=== PATIENT | male | born 1975 | race Asian ===

== ENCOUNTER 2017-01-18 19:17 | Emergency (ER) | payer MEDICAID, OTHER ==
[~2017-01-18] VITALS: Ht 170.2 cm; Wt 80.0 kg
[2017-01-18 19:21] VITALS: Ht 170.2 cm; Wt 80.0 kg
[2017-01-18] MEDS ORDERED: morphine 4 MG/ML VIAL IV STA (22:52)
[2017-01-18] MEDS ORDERED: SOD CHLORIDE 0.9% 1,000 ML IV STA (22:52)
[2017-01-18] MEDS ORDERED: ONDANSETRON 4 MG INJ IV STA (22:52)
[2017-01-18 23:15] LABS: BASOPHIL # 0.1 10^3/ul (0.0-0.1); BASOPHILS % 0.8 % (0.0-2.0); EOSINOPHILS # 0.6 10^3/ul (0.0-0.5); EOSINOPHILS % 5.8 % (0.0-7.0); HEMATOCRIT 42.8 % (42.0-52.0); HEMOGLOBIN 14.3 g/dl (14.0-18.0); LYMPHOCYTES % 38.6 % (15.0-51.0); MEAN CORPUSCULAR HEMOGLOBIN 29.8 pg (29.0-33.0); MEAN CORPUSCULAR HGB CONC 33.4 g/dl (32.0-37.0); MEAN CORPUSCULAR VOLUME 89.2 fl (82.0-101.0); MONOCYTES % 9.3 % (0.0-11.0); NEUTROPHILS % 45.2 % (39.0-77.0); PLATELET COUNT 281 10^3/UL (140-415); RED CELL DISTRIBUTION WIDTH 12.3 % (11.5-14.5); WHITE BLOOD COUNT 10.4 10^3/ul (4.8-10.8)
[2017-01-18 23:19] LABS: ADD UMIC NO; UR ASCORBIC ACID NEGATIVE (NEGATIVE); UR BILIRUBIN (Dip) NEGATIVE (NEGATIVE); UR BLOOD (Dip) NEGATIVE (NEGATIVE); UR CLARITY CLEAR (CLEAR); UR COLOR YELLOW (YELLOW); UR GLUCOSE (Dip) NEGATIVE (NEGATIVE); UR KETONES (Dip) NEGATIVE (NEGATIVE); UR LEUKOCYTE ESTERASE (Dip) NEGATIVE Leu/ul (NEGATIVE); UR NITRITE (Dip) NEGATIVE (NEGATIVE); UR SPECIFIC GRAVITY (Dip) 1.023 (1.003-1.030); UR TOTAL PROTEIN (Dip) NEGATIVE (NEGATIVE); UR UROBILINOGEN (Dip) 1+ mg/dL (NEGATIVE)
[2017-01-18 23:32] LABS: ALANINE AMINOTRANSFERASE 95 IU/L (13-69); ALBUMIN 4.2 g/dl (3.3-4.9); ALBUMIN/GLOBULIN RATIO 1.13; ALKALINE PHOSPHATASE 121 IU/L (42-121); ANION GAP 14 (8-16); ASPARTATE AMINO TRANSFERASE 56 IU/L (15-46); BILIRUBIN,INDIRECT 0.1 mg/dl (0-1.1); BILIRUBIN,TOTAL 0.1 mg/dl (0.2-1.3); BLOOD UREA NITROGEN 21 mg/dl (7-20); CALCIUM 9.6 mg/dl (8.4-10.2); CARBON DIOXIDE 30 mmol/L (21-31); CHLORIDE 103 mmol/L (97-110); CREATININE 0.83 mg/dl (0.61-1.24); GLUCOSE 86 mg/dl (70-220); POTASSIUM 3.8 mmol/L (3.5-5.1); SODIUM 143 mmol/L (135-144); TOTAL PROTEIN 7.9 g/dl (6.1-8.1)
[2017-01-18 23:48] LABS: TROPONIN-I < 0.012 ng/ml (0.00-0.12)
[2017-01-19] MEDS ORDERED: SOD CHLORIDE 0.9% 100 ML ONE (00:17)
[2017-01-19] MEDS ORDERED: IOHEXOL 300MG/ML 150 ML BTL ONE (00:17)
--- NOTE | 2017-01-19 01:05 | RADRPT ---
PROCEDURE: CT ABDOMEN AND PELVIS WITH CONTRAST: CLINICAL INDICATION: 41 years of age, male, abdominal pain. COMPARISON: None available. TECHNIQUE: CT of the abdomen and pelvis was performed following administration of 100 mL IV Omnipaq ue-300. Oral contrast was not administered prior to the examination. Coronal and sagittal reformatted images were obtained from the axial source images. Images were revi ewed on a high-resolution PACS workstation. Dose information: Based on a 32 cm phantom, the estimated radiation dose (CTDIvol mGy for each serie s in this exam is 11.9. The estimated cumulative dose (DLP mGy-cm) is 783. One or more of the following dose reduction techniques were used: - Automated exposure control. - Adjustment of the mA and/or kV according to patient size. - Use of iterative reconstruction technique. FINDINGS: LUNG BASES: Bilateral dependent atelectasis. ABDOMEN/PELVIS: Liver: Liver is imaged in the early portal venous phase with nonopacification of the hepatic veins. No focal lesions. Portal veins, splenic vein and SMV are patent. Gallbladder: Normal. Bile ducts: No intrahepatic or extrahepatic biliary duct dilatation. Spleen: Normal. Pancreas: Normal. Adrenal glands: Normal. Kidneys and ureters: Normal. Negative for urinary calculi or hydronephrosis. Aorta and IVC: Minimal atherosclerosis aorta. Aorta is normal caliber. Lymph nodes: Normal. Gastrointestinal tract: There is a 2.7 cm inflamed epiploic appendage arising from the anterior wall of the mid ascending colon in the right mid abdomen in keeping with epiploic appendagitis (3/103). The underlying colon appears normal. There are prominent loops of small bowel in the left upper quad rant without a transition point in keeping with a localized ileus. Bowel loops are otherwise decompr essed. Appendix: Normal Bladder: Normal. Pelvic Organs: Prostate gland and seminal vesicles are unremarkable. Peritoneal cavity: No free fluid or free intraperitoneal air. Abdominal wall: Normal. BONES: Musculoskeletal: No suspicious bone lesions. IMPRESSION: Acute epiploic appendagitis involving an appendage arising from the mid ascending colon in the right mid abdomen. RPTAT: HCTS Claudiay Sadro, Physician Date Time Electronically viewed and signed by Emilie Barker, Physician on 01/19/2017 01:05 CS/
[2017-01-19] MEDS ORDERED: morphine 4 MG/ML VIAL IV STA (01:18)
[2017-01-19] MEDS ORDERED: ONDANSETRON 4 MG INJ IV STA (01:18)
[2017-01-19] MEDS ORDERED: NAPR-260 PO (01:28)
[2017-01-19] MEDS ORDERED: HYDR-906 PO (01:28)
[2017-01-19] MEDS ORDERED: AMOX1TAB10 PO (01:28)
--- NOTE | 2017-02-02 16:48 | ERD ---
ER Documentation Chief Complaint Date/Time DATE: 02/02/17 TIME: 16:37 Chief Complaint RUQ pain for 2 days denies n/v/d and constipation HPI 41-year-old male presents to the emergency department for complaints of abdominal pain which has been intermittent and gradually worsening over the past week. He states that the pain is currently a sharp right-sided out of 10, mid abdominal pain which is worse after eating. Denies any fever but notes possible chills since last night. He is attempted to treat his symptoms with Motrin and Tylenol with only mild relief. Bowel movement was today and normal for him. He denies any vomiting, diarrhea, headache. Denies any prior abdominal surgeries. ROS All systems reviewed and are negative except as per history of present illness. Medications Home Meds Active Scripts Hydrocodone/Acetaminophen ([place] 5-325 Tablet) 1 Each Tablet, 1 TAB PO Q6H Y for PAIN, #12 TAB Prov:ABEL ASIF PA-C 01/19/17 Naproxen* (Naprosyn*) 500 Mg Tablet, 500 MG PO BID Y for PAIN AND/OR INFLAMMATION, #30 TAB Prov:ABEL ASIF PA-C 01/19/17 Amoxicillin/Potassium Clav (Amox-Clav 875-125 mg Tablet) 875-125 mg Tab, 1 TAB PO BID for 10 Days, #20 TAB Prov:ABEL ASIF PA-C 01/19/17 Allergies Allergies: Coded Allergies: No Known Allergy (Unverified , 01/18/17) PMhx/Soc Medical and Surgical Hx: pt denies Medical Hx, pt denies Surgical Hx Hx Alcohol Use: No Hx Substance Use: No Hx Tobacco Use: No Smoking Status: Never smoker Physical Exam Physical Exam Const:, Well-nourished, in mild distress. Head: Atraumatic Neck: Full range of motion..~ No meningismus. Resp: Clear to auscultation bilaterally Cardio: Regular rate and rhythm, no murmurs Abd: Soft, otherwise tenderness to the right middle abdomen. Rebound tenderness or lower abdominal tenderness. No peritoneal signs. No rigidity. No Distention. Skin: No petechiae or rashes Back: No midline or flank tenderness Ext: No cyanosis, or edema Neur: Awake and alert Psych: Normal Mood and Affect Results 24 hrs Laboratory Tests Test 01/18/17 23:00 White Blood Count 10.410^3/ul Red Blood Count 4.8010^6/ul Hemoglobin 14.3g/dl Hematocrit 42.8% Mean Corpuscular Volume 89.2fl Mean Corpuscular Hemoglobin 29.8pg Mean Corpuscular Hemoglobin Concent 33.4g/dl Red Cell Distribution Width 12.3% Platelet Count 99216^3/UL Mean Platelet Volume 10.0fl Neutrophils % 45.2% Lymphocytes % 38.6% Monocytes % 9.3% Eosinophils % 5.8% Basophils % 0.8% Nucleated Red Blood Cells % 0.0/100WBC Neutrophils # (Manual) 4.710^3/ul Lymphocytes # 4.010^3/ul Monocytes # 1.010^3/ul Eosinophils # 0.610^3/ul Basophils # 0.110^3/ul Nucleated Red Blood Cells # 0.010^3/ul Urine Color YELLOW Urine Clarity CLEAR Urine pH 6.0 Urine Specific [place] 1.023 Urine Ketones NEGATIVEmg/dL Urine Nitrite NEGATIVEmg/dL Urine Bilirubin NEGATIVEmg/dL Urine Urobilinogen 1+mg/dL Urine Leukocyte Esterase NEGATIVELeu/ul Urine Hemoglobin NEGATIVEmg/dL Urine Glucose NEGATIVEmg/dL Urine Total Protein NEGATIVEmg/dl Sodium Level 143mmol/L Potassium Level 3.8mmol/L Chloride Level 103mmol/L Carbon Dioxide Level 30mmol/L Anion Gap 14 Blood Urea Nitrogen 21mg/dl Creatinine 0.83mg/dl Glucose Level 86mg/dl Calcium Level 9.6mg/dl Total Bilirubin 0.1mg/dl Direct Bilirubin 0.00mg/dl Indirect Bilirubin 0.1mg/dl Aspartate Amino Transf (AST/SGOT) 56IU/L Alanine Aminotransferase (ALT/SGPT) 95IU/L Alkaline Phosphatase 121IU/L Troponin I < 0.012ng/ml Total Protein 7.9g/dl Albumin 4.2g/dl Globulin 3.70g/dl Albumin/Globulin Ratio 1.13 Lipase 54U/L Current Medications Medications (Trade) Dose Ordered Sig/Diallo Route PRN Reason Start Time Stop Time Status Last Admin Dose Admin Sodium Chloride (NS) 1,000 ml @ 1,000 mls/hr Q1H STAT IV 01/18/17 22:52 01/18/17 23:51 DC 01/18/17 23:12 Morphine Sulfate (morphine) 4 mg ONCE STAT IV 01/18/17 22:52 01/18/17 22:53 DC 01/18/17 23:12 Ondansetron HCl 4 mg 4 mg ONCE STAT IV 01/18/17 22:52 01/18/17 22:53 DC 01/18/17 23:11 Sodium Chloride (NS) 100 ml @ ud STK-MED ONCE .ROUTE 01/19/17 00:17 01/19/17 00:18 DC 01/19/17 00:35 Iohexol (Omnipaque 300mg/ ml) 150 ml STK-MED ONCE .ROUTE 01/19/17 00:17 01/19/17 00:18 DC 01/19/17 00:35 Morphine Sulfate (morphine) 4 mg ONCE STAT IV 01/19/17 01:18 01/19/17 01:19 DC 01/19/17 01:40 Ondansetron HCl (Zofran Inj) 4 mg ONCE STAT IV 01/19/17 01:18 01/19/17 01:19 DC 01/19/17 01:41 Procedures/MDM 41-year-old otherwise healthy male presents to the emergency department for complaints of localized right-sided abdominal pain for the last week with associated nausea and chills. Well-appearing and nontoxic. Vital signs reviewed and within normal limits upon arrival. Physical exam with evidence of localized tenderness along the right middle abdomen. Otherwise no flank tenderness, abdominal rigidity or distention. Patient's last bowel movement was today normal for him. Abdominal CT with evidence of acute epiploic appendage iritis arising from the mid descending colon in the right mid abdomen. Received fluids and pain & nausea was well controlled while in the emergency department. Diagnosis includes but not to acute appendicitis, partial bowel obstruction, diverticulitis, cholecystitis, cholangitis, pancreatitis, or ischemic bowel. Physical exam consistent with abdominal pain likely due to epiploic appendage otitis. Case discussed with Dr. Oneil Martinez, who agreed with workup and plan for discharge with pain medication and antibiotics. Based on patient's history of present illness and physical examination the decision was made to discharge. The patient was re-evaluated after ED treatment and stabilizing measures, and symptoms have improved. There is no evidence of life threatening injuries or illnesses at this time. On re-examination, patient resting in no distress, stable vital signs, reports feeling better and safe for discharge with outpatient follow up with PMD in 1-2 days. Patient given return precautio Departure Diagnosis: Primary Impression: Abdominal pain Abdominal location: unspecified location Qualified Code: R10.9 - Abdominal pain, unspecified abdominal location Additional Impression: Epiploic appendagitis Condition: Good Patient Instructions: Abdominal Pain Referrals: [facility] YOU HAVE RECEIVED A MEDICAL SCREENING EXAM AND THE RESULTS INDICATE THAT YOU DO NOT HAVE A CONDITION THAT REQUIRES URGENT TREATMENT IN THE EMERGENCY DEPARTMENT. FURTHER EVALUATION AND TREATMENT OF YOUR CONDITION CAN WAIT UNTIL YOU ARE SEEN IN YOUR DOCTORS OFFICE WITHIN THE NEXT 1-2 DAYS. IT IS YOUR RESPONSIBILITY TO MAKE AN APPOINTMENT FOR FOL-UP CARE. IF YOU HAVE A PRIMARY DOCTOR --you should call your primary doctor and schedule an appointment IF YOU DO NOT HAVE A PRIMARY DOCTOR YOU CAN CALL OUR PHYSICIAN REFERRAL HOTLINE AT IF YOU CAN NOT AFFORD TO SEE A PHYSICIAN YOU CAN CHOSE FROM THE FOLLOWING [facility] [address] [facility] [address] [facility] [facility] [address] [facility] [facility] [facility] [address] [facility]. [facility] [address] [facility]. [facility]. [address] Additional Instructions: Call your primary care doctor TOMORROW for an appointment during the next 1-2 days.See the doctor sooner or return here if your condition worsens before your appointment time. ABEL ASIF PA-C Feb 02, 2017 16:48
== END 2017-01-19 02:02 | disposition home or self-care (01) ==
LOC: FTE 19:17
DX: K38.8 Other specified diseases of appendix (principal)
CPT/HCPCS: 36415; 74177; 80053; 81003; 83690; 84484; 85025; 96374; 96375; 96376; J2270; J2405; J7030; Q9967; Z7502; Z7610